=== PATIENT | male | born 1980 | race Caucasian/White ===

== ENCOUNTER → 2017-05-13 | Day surgery (SDC) | payer OTHER ==
[2017-05-12 08:44] VITALS: BMI 31.0
[~2017-05-13] VITALS: Ht 185.4 cm; Wt 106.4 kg
[~2017-05-13] MED LIST: ALBUT/IPRATROP 3MG/0.5MG NEB 3 ML VIAL INH STA; ATROPINE SULFATE 0.1 MG/ML 5ML SYR IV PRN; AZEL0.15 NAE; DEXAMETHASONE SOD INJ 4 MG/ML VIAL ONE; ESMOLOL HCL 10 MG/ML 10 ML VIAL ONE; EpHEDrine SULFATE INJ 50 MG/ML AMP IV PRN; FENTANYL CITRATE INJ 50 MCG/1 ML 2 ML VIAL IV PRN; FENTANYL CITRATE INJ 50 MCG/1 ML 2 ML VIAL ONE; FLUT50SP45 NAE; LIDOCAINE HCL 2% 2 ML VIAL (20MG/ML) ONE; MIDAZOLAM HCL 1 MG/ML 2ML VIAL ONE; ONDANSETRON INJ 2 MG/ML 2 ML VIAL IV PRN; ONDANSETRON INJ 2 MG/ML 2 ML VIAL ONE; PROPOFOL IV EMULSION 10 MG/ML 20 ML VIAL IV ONE; ROCURONIUM BROMIDE 10 MG/ML 5 ML VIAL IV ONE; SUCCINYLCHOLINE CHLORIDE 20 MG/ML 10 ML VIAL IV ONE; VNTHFA/IN INH
[2017-05-13 11:49] VITALS: BP 164/91; PULSE 85; TEMP 36.9; O2SAT 98; Ht 185.4 cm; Wt 106.4 kg
--- NOTE | 2017-05-13 12:13 | History and Physical ---
History & Physical Date of Service May 13, 2017. History & Physical Patient here for a follow up to an abnormal ct scan. He states that he was treated and is now back to normal. He is taking medications as listed/sc 36-year-old white male was referred to me by Dr. Ryan Kearney from the [facility] for pulmonary evaluation. Patient was accompanied by his significant other an SMOKING PIPES CLEANER. 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 He has tried an occasional cigarette years ago but does not have a smoking history and only minimal secondary exposure. Both parents are living father has COPD from smoking and 1 sister who is in good health. They have no children. He has undergone ventral hernia repair in 2012 but did not have a preoperative chest x-ray. He was diagnosed with obstructive sleep apnea this past August and was placed on a full face mask at 9 centimeters water pressure. At the modification was and a lead to chronic coughing. That was adjusted but he has had history of coughing and wheezing since September. They do have a mechanical cleansing device for the CPAP mask and using it. He was placed on a 5 day azithromycin course without efficacy for acute bronchitis and then most recently on a week's worth of Avelox which seems to have helped. He is less bronchospastic and less dyspneic with moderate exertion and his sputum production is clear. No hemoptysis is noted. He denies pleuritic chest pain. In his school years he played football and track without any difficulty. He has been prescribed an albuterol HFA inhaler and underwent recent chest x-ray and subsequent CT scanning. Chest x-ray on 04/15/2017 suggested bilateral hilar prominence and subsequent CT scanning of the chest showed innumerable micro nodule opacities in the perihilar distribution bilaterally following the bronchovascular bundles. The measured 48 millimeters left greater than right and there are sub subpleural nodules as well. Bilateral enlarged hilar lymph nodes and mediastinal lymph nodes are noted with the largest being in the subcarinal area measuring 2 centimeters in greatest short axis dimension.. He denies arthralgias or skin lesions or any other systemic symptoms. His weight has been constant. His symptoms of sleep apnea or daytime hypersomnolence and loud so numerous snoring with witnessed apneic episodes though symptoms have abated with the institution of CPAP therapy. [id number] [id number] Active Problems 1. Acute bronchitis (J20.9) 2. Obstructive sleep apnea syndrome in adult (G47.33) SurgicalHistorySectionStart 1. History of hernia repair Social History Never smoker Social alcohol use Current Meds 1. Avelox 400 MG Oral Tablet; one daily; 2. Azelastine HCl - 0.1 % Nasal Solution; INSERT 2 SQUIRTS IN EACH NOSTRIL TWICE 3. Fluticasone Propionate 50 MCG/ACT Nasal Suspension; USE TWO SPRAY(S) IN EACH NOSTRIL TWICE DAILY; Allergies 1. Penicillins Vitals Vital Signs Recorded: 03May2017 02:11PM Height: 6 ft 1 in Weight: 234 lb BMI Calculated: 30.87 BSA Calculated: 2.3 Heart Rate: 96 O2 Saturation: 97, RA Temperature: 98.2 F Respiration: 18 Blood Pressure: 142 / 80, LUE, Sitting Physical Exam Constitutional General appearance: No acute distress, well appearing and well nourished. Eyes Conjunctiva and lids: No swelling, erythema, or discharge. Pupils and irises: Equal, round and reactive to light. Ears, Nose, Mouth, and Throat External inspection of ears and nose: Normal. Otoscopic examination: Tympanic membrance translucent with normal light reflex. Canals patent without erythema. Oropharynx: Normal with no erythema, edema, exudate or lesions. Pulmonary Respiratory effort: No increased work of breathing or signs of respiratory distress. Auscultation of lungs: Clear to auscultation. Cardiovascular Palpation of heart: Normal PMI, no thrills. Auscultation of heart: Normal rate and rhythm, normal S1 and S2, without murmurs. Examination of extremities for edema and/or varicosities: Normal. Abdomen Abdomen: Non-tender, no masses. Liver and spleen: No hepatomegaly or splenomegaly. Lymphatic Palpation of lymph nodes in neck: No lymphadenopathy. rt Musculoskeletal Gait and station: Normal. Digits and nails: Normal without clubbing or cyanosis. Inspection/palpation of joints, bones, and muscles: Normal. Skin Skin and subcutaneous tissue: Normal without rashes or lesions. Neurologic Cranial nerves: Cranial nerves 2-12 intact. Reflexes: 2+ and symmetric. Sensation: No sensory loss. Psychiatric Orientation to person, place and time: Normal. Mood and affect: Normal. Discussion/Summary In review of this patient's CT scan and certainly with suggest pulmonary sarcoidosis with the presence of bilateral hilar and mediastinal adenopathy and perihilar micro nodular densities. Although his symptoms seem to have improved recently a certainly favor a tissue diagnosis with full measure of pulmonary function studies and repeat evaluation in the clinic upon completion of this workup. This has been explained to the patient and his significant other and he is in agreement to proceed with a diagnostic procedure.
[2017-05-13 12:15] LABS: PARTIAL THROMBOPLASTIN RATIO 1.1; PROTHROMBIN TIME (PATIENT) 10.4 SECONDS (9.0-12.0)
--- NOTE | 2017-05-13 12:37 | History & Physical Bridge Note ---
H&P Re-Evaluation Bridge Note: I have examined the patient, reviewed the History & Physical and in the interval since the performance of the History & Physical I have noted the following changes of clinical significance: No changes noted
--- NOTE | 2017-05-13 14:31 | Bronchoscopy Procedure Note ---
Bronchoscopy Procedure Note Procedure: Flexible-Bronchoscopy, EBUS, FNA, Tbbx, Cytology Brushing, BAL Consent: Obtained through the patient placed into the chart Pre-Procedural Dx: Mediastinal lymphadenopathy Post-Procedural Dx: Mediastinal hilar lymphadenopathy with associated bronchial erythema Analgesia: GETA Sedation: GETA Procedure: The Olympus video bronchoscope and EBUS scope were used for this procedure Initially the flexible bronchoscope was used for evaluation of the airways. An LMA Size 5 was used for this procedure and properly positioned Vocal Cords: Anatomically WNL Sub-Glottis & Trachea: Anatomically WNL Ina: Anatomically within normal limits Right bronchial tree: Right mainstem bronchus: Anatomically within normal limits Right upper lobe: Notably erythematous and boggy Bronchus intermedius: Diffuse erythema Right middle lobe: Diffuse erythema with posterior bronchial wall changes Right lower lobe: Diffuse erythema Findings: Diffuse erythema throughout most the right bronchial tree Left bronchial tree: Left mainstem bronchus: Anatomically within normal limits Left upper lobe: Anatomically within normal limits Lingula: Anatomically within normal limits Left lower lobe: Anatomically within normal limits Findings: No significant findings noted EBUS/ORALIA: FNA Philip Stations: 7: # of passes 6 4R: # of passes 2 Flexible bronchoscopy: Tbbx: 6 in the right upper lobe BAL: 211 strep obtained of the right lower lobe, one Lukens trap obtained in the right upper lobe Cytology brushing: Right middle lobe Complications: None Follow-up: PACU
--- NOTE | 2017-05-13 15:10 | DIAGNOSTIC IMAGING REPORT ---
CHEST ONE VIEW PORTABLE CLINICAL HISTORY: 36 years-old Male presenting with rule out pneumothorax. TECHNIQUE: Portable upright AP view of the chest was obtained. COMPARISON: None. FINDINGS: Mildly prominent cardiac silhouette allowing for AP technique. Patchy bilateral ulnar opacities, right greater than left. Image quality degraded by motion artifact. No large effusion. No gross evidence of a large pneumothorax allowing for image quality. Osseous structures normal. Upper abdomen normal. IMPRESSION: 1. Limited image quality negatively affects diagnostic sensitivity the exam. If there is continuing clinical concern for pneumothorax, dedicated PA radiograph of the chest is recommended. No evidence of pneumothorax at this time. 2. Patchy bilateral opacities suggested, which raises concern for pneumonia. Electronically signed by: Quoc Bates M.D. 05/13/2017 3:08 PM Dictated Date/Time: 05/13/2017 3:07 PM
[2017-05-13 15:35] VITALS: BP 160/84; PULSE 98; TEMP 36.4; O2SAT 93
[2017-05-13 15:55] VITALS: PULSE 90; O2SAT 95
[2017-05-13 16:05] VITALS: BP 149/64; PULSE 87; O2SAT 94
--- NOTE | 2017-05-13 16:16 | Discharge Instructions ---
Discharge Instructions Date of Service May 13, 2017. (Román Min PA-C) Admission Reason for Admission: Hilar Lymphadenopathy (Román Min PA-C) Discharge Discharge Diagnosis / Problem: S/P EBUS for hilar lymphadenopathy (Román Min PA-C) Discharge Goals Goal(s): Diagnostic testing (Román Min PA-C) Activity Recommendations Activity Limitations: resume your previous activity Lifting Limitations: none Exercise/Sports Limitations: none May Resume Sexual Activity: when tolerated Shower/Bathe: tomorrow Driving or Machine Use: resume 1 day after discharge . (Román Min PA-C) Instructions / Follow-Up Instructions / Follow-Up ACTIVITY RECOMMENDATIONS: * Rest today, resume normal activity tomorrow. * Do not drive today. SPECIAL CARE INSTRUCTIONS: * Call your physician if you experience any chest or shoulder pain, fever, coughing, spitting up blood (more than 2 teaspoons) or excessive shortness of breath. * Remove dressing from IV site (where needle was placed into the vein) after 2 hours. Apply a warm, moist compress to site if irritation occurs. Call physician if site becomes red or painful to touch. * You may eat 4 hours after the completion of your procedure * Resume all usual medications as previously directed FOLLOW UP VISIT: * Keep any scheduled doctor appointments. (Román Min PA-C) Current Hospital Diet Patient's current hospital diet: Regular (Román Min PA-C) Discharge Diet Recommended Diet: Regular Diet Fluid Restriction: None (Román Min PA-C) Procedures Procedures Performed: Endobronchial Ultrasound Guided Bronchoscopy (Román Min PA-C) Pending Studies Studies pending at discharge: yes List of pending studies: Bronchoscopy results will be relayed to Dr. Almazan's office (Román Min PA-C) Medical Emergencies . Who to Call and When: Medical Emergencies: If at any time you feel your situation is an emergency, please call 911 immediately. . (Román Min PA-C) Non-Emergent Contact Non-Emergency issues call your: Cyber Defense Forensics Analyst . (Román Min PA-C) . "Provider Documentation" section prepared by Román Min. . (Román Min PA-C) VTE Core Measure Inpt VTE Proph given/why not?: Contraindicated (Invasive procedure) (Román Min PA-C)
[2017-05-13 16:35] VITALS: BP 138/75; PULSE 91; TEMP 36.6; O2SAT 94
--- NOTE | 2017-05-13 16:39 | Anesthesiology Progress Note ---
Anesthesia Post Op Note Date & Time May 13, 2017 at 16:39 Vital Signs Pain Intensity: 0 Vital Signs Past 12 Hours Date Time Temp Pulse Resp B/P (MAP) Pulse Ox O2 Delivery O2 Flow Rate FiO2 05/13/17 16:05 87 18 149/64 94 Room Air 05/13/17 15:55 90 16 95 Nasal Cannula 2.0 05/13/17 15:35 36.4 98 18 160/84 93 Nasal Cannula 2 05/13/17 15:30 36.2 97 18 147/82 97 Nasal Cannula 2 05/13/17 15:20 98 18 145/82 97 Nasal Cannula 2 05/13/17 15:10 112 16 152/87 98 Nasal Cannula 2 05/13/17 15:00 100 16 157/94 98 Oxymask 5 05/13/17 14:50 36.1 102 16 151/96 97 Oxymask 10 05/13/17 11:49 36.9 85 18 164/91 (115) 98 Room Air Notes Mental Status: alert / awake / arousable, participated in evaluation Pt Amnestic to Procedure: Yes Nausea / Vomiting: adequately controlled Pain: adequately controlled Airway Patency, RR, SpO2: stable & adequate BP & HR: stable & adequate Hydration State: stable & adequate Anesthetic Complications: no major complications apparent
== END | disposition home or self-care (01) ==
LOC: C.ACU 10:58
PROVIDERS: ATTEND Internal Medicine Critical Care Medicine
DX: R59.0 Localized enlarged lymph nodes (principal); J18.9 Pneumonia, unspecified organism; J20.9 Acute bronchitis, unspecified; G47.33 Obstructive sleep apnea (adult) (pediatric); Z79.899 Other long term (current) drug therapy